=== PATIENT | female | born 1950 | race Caucasian/White ===

== ENCOUNTER 2016-11-17 18:57 | Inpatient (IN) | payer OTHER ==
[~2016-11-17] VITALS: Ht 160 cm; Wt 81.6 kg
[~2016-11-17 18:57] MED LIST: BUTA1CAP45 PO; ESOM20CA33 PO; LORA2TAB95 PO; LOSA50TA3 PO; METO1TAB PO; PRED20TA PO; PROC10TA PO; VENL75CA PO
[2016-11-17 19:00] VITALS: BP 146/109; PULSE 87; RESP 16; TEMP 99.2; O2SAT 93
[2016-11-17] MEDS ORDERED: ASPIRIN 81 MG TAB.CHEW PO ONE (19:15)
[2016-11-17] MEDS ORDERED: NITROGLYCERIN 0.4 MG TAB.SUBL SL ONE (19:15)
--- NOTE | 2016-11-17 19:40 | NUR ---
# 20 gauge angiocath placed to right hand. Use of asceptic technique. Opsite placed over site. Blood return noted. Blood for lab drawn from site. Flushed with 10 cc of normal saline. No evidence of infiltration noted. Patient tolerated well.
--- NOTE | 2016-11-17 19:40 | NUR ---
Dr Morel at bedside examining patient
--- NOTE | 2016-11-17 19:40 | NUR ---
Pt brought by self ,A&Ox4, pt c/o burning chest pain since this am, also HTN, skin pink and warm, cap refill <3, VSS, pt denies N/V/D, no bleeding noted,respirations even and unlabored.
[2016-11-17 20:06] LABS: BASOPHILS # (AUTO) 0.1 K/uL (0.0-0.2); BASOPHILS % (AUTO) 0.6 % (0.0-2.0); EOSINOPHILS % (AUTO) 0.5 % (0.0-4.0); HEMATOCRIT 42.4 % (36-48); HEMOGLOBIN 14.7 g/dL (12.0-16.0); LYMPHOCYTES # (AUTO) 2.9 K/uL (1.0-5.5); LYMPHOCYTES % (AUTO) 34.3 % (20.5-51.5); MEAN CORPUSCULAR HEMOGLOBIN 31 pg (27-31); MEAN CORPUSCULAR HGB CONC 35 % (32-36); MEAN CORPUSCULAR VOLUME 90 fL (79.0-98.0); MONOCYTES # (AUTO) 0.7 K/uL (0.0-1.0); MONOCYTES % (AUTO) 8.3 % (1.7-9.3); NEUTROPHILS # (AUTO) 4.7 K/uL (1.8-7.7); NEUTROPHILS % (AUTO) 56.3 % (40.0-70.0); PLATELET COUNT (AUTO) 253 K/uL (130-430); RED BLOOD CELL COUNT(AUTO) 4.71 MIL/uL (4.2-6.2); RED CELL DISTRIBUTION WIDTH 11.8 % (9.0-15.0); WHITE BLOOD COUNT (AUTO) 8.4 K/uL (4.8-10.8)
[2016-11-17 20:07] LABS: CALCIUM 8.7 mg/dL (8.4-11.0); CREATININE 0.69 mg/dL (0.55-1.30); POTASSIUM 3.1 mmol/L (3.5-5.1)
[2016-11-17 20:09] LABS: INR 0.9 (0.8-1.2); PROTHROMBIN TIME 10.3 SECS (9.5-12.5)
[2016-11-17] MEDS ORDERED: POTASSIUM CHLORIDE 20 MEQ TAB.PRT.SR PO ONE (20:30)
[2016-11-17] MEDS ORDERED: ONDANSETRON HCL 4 MG/2 ML VIAL IVP ONE (20:45)
[2016-11-17] MEDS ORDERED: MORPHINE 4 MG/ML INJ. SYRINGE IVP ONE (20:45)
[2016-11-17] MEDS ORDERED: FENT-71 TD (21:00)
[2016-11-17] MEDS ORDERED: ACETAMINOPHEN 325 MG TABLET PO PRN (21:15)
[2016-11-17] MEDS ORDERED: LORazepam 2 MG/ML VIAL (FOR ER USE) IVP ONE (21:15)
--- NOTE | 2016-11-17 21:38 | NUR ---
ADMISSION: The patient, NAYA HUERTA, 66 y/o, F admitted by NACHO MUNOZ MD, was given written information regarding hospital policies, unit procedures and contact persons. Valuables were checked and signed.
[2016-11-17] MEDS ORDERED: KCL 20 mEq in NS 1000 mL 1,000 ML IV SCH (21:43)
[2016-11-17 21:45] VITALS: BP 159/89; PULSE 79; RESP 20; TEMP 97.5; O2SAT 95
[2016-11-17] MEDS ORDERED: NITROGLYCERIN 0.4 MG TAB.SUBL SL PRN (21:45)
[2016-11-17] MEDS ORDERED: MORPHINE 2 MG/ML INJ. SYRINGE IVP PRN (21:45)
--- NOTE | 2016-11-17 21:53 | NUR ---
Consult Called Reason for consultation: Chest Pain Was consult called: yes Consulting physician: Sharath Schneider MD [employer]iding [employer] Specialty: Cardiology Ordered by: Luz Shepard MD
--- NOTE | 2016-11-17 22:00 | NUR ---
Initial note A/O x 3, no SOB, no chest pain, denied pain at this time. Skin warm to touch, IV at R hand, patent and free of infection or infiltration. Anxious and mild depressed. Clear lung sounds, active bowel sounds. No edema noted. +2 radial and pedal pulses. Unable to keep both knees flat, braces on knees, pillows placed under knees. Had urination x 2, bedpan provided, pericare done, patient tolerated well. Call light within reach, education provided, will continue to monitor patient.
--- NOTE | 2016-11-17 23:20 | NUR ---
Dr. Shepard called back and gave orders Ativan 2 mg IVP x 1 now Catapres 0.1 mg PO Q6H PRH for SBP > 160 mmHg DC Morphine IVP
[2016-11-17] MEDS ORDERED: cloNIDine HCL 0.1 MG TABLET PO PRN (23:30)
[2016-11-17] MEDS ORDERED: LORazepam 2 MG/ML VIAL IVP ONE (23:30)
[2016-11-17] MEDS: FIORCET PO PRN (23:45)
[2016-11-18] VITALS: BP 151/71; PULSE 84; RESP 17; TEMP 97.6; O2SAT 96
[2016-11-18] MEDS ORDERED: LORazepam 1 MG TABLET PO SCH
[2016-11-18] MEDS ORDERED: LORazepam 1 MG TABLET PO PRN ×2
--- NOTE | 2016-11-18 00:20 | NUR ---
Rounds A/O x 3, no SOB, no chest pain, pain subsided after Fioricet given. Ativan given earlier per patient requested, patient is calm at this time. Skin warm to touch, IV at R hand, patent and free of infection or infiltration. Mild depressed. Unable to keep both knees flat, braces on knees, pillows placed under knees. Call light within reach, education provided, will continue to monitor patient.
[2016-11-18] MEDS ORDERED: SUMAtriptan SUCCINATE 50 MG TABLET PO PRN (00:45)
[2016-11-18] MEDS: ONDANSETRON HCL 4 MG/2 ML VIAL IVP PRN ×2 (01:10→05:06)
--- NOTE | 2016-11-18 02:05 | NUR ---
Rounds Resting in bed, no SOB, no chest pain, no grimacing. IV at R hand, patent, free of infection or infiltration. Unable to keep both knees flat, braces on knees, pillows placed under knees. Call light within reach, will continue to monitor patient.
[2016-11-18 04:00] VITALS: BP 156/76; PULSE 78; RESP 18; TEMP 96.3; O2SAT 97
--- NOTE | 2016-11-18 04:10 | NUR ---
Rounds Resting in bed, no SOB, no chest pain, no grimacing. C/o mild nauseated, and patient is aware that next dose of Zofran is due about 0515. IV at R hand, patent, free of infection or infiltration. Unable to keep both knees flat, braces on knees, pillows placed under knees. SCD in place. Call light within reach, will continue to monitor patient.
[2016-11-18 04:35] LABS: BASOPHILS # (AUTO) 0.1 K/uL (0.0-0.2); BASOPHILS % (AUTO) 0.6 % (0.0-2.0); CALCIUM 8.5 mg/dL (8.4-11.0); EOSINOPHILS % (AUTO) 0.3 % (0.0-4.0); HEMATOCRIT 42.4 % (36-48); HEMOGLOBIN 14.7 g/dL (12.0-16.0); LYMPHOCYTES # (AUTO) 2.6 K/uL (1.0-5.5); MEAN CORPUSCULAR HEMOGLOBIN 31 pg (27-31); MEAN CORPUSCULAR HGB CONC 35 % (32-36); MEAN CORPUSCULAR VOLUME 90 fL (79.0-98.0); MONOCYTES # (AUTO) 0.9 K/uL (0.0-1.0); MONOCYTES % (AUTO) 9.1 % (1.7-9.3); NEUTROPHILS # (AUTO) 6.2 K/uL (1.8-7.7); PLATELET COUNT (AUTO) 241 K/uL (130-430); POTASSIUM 3.7 mmol/L (3.5-5.1); RED CELL DISTRIBUTION WIDTH 11.5 % (9.0-15.0); WHITE BLOOD COUNT (AUTO) 9.8 K/uL (4.8-10.8)
[2016-11-18 04:36] LABS: CREATININE 0.65 mg/dL (0.55-1.30); THYROID STIMULATING HORMONE 3.17 uIu/mL (0.34-4.82)
--- NOTE | 2016-11-18 06:00 | NUR ---
Closing note Sleeping in bed, no SOB, no chest pain, no grimacing. IV at R hand. Unable to keep both knees flat, braces on knees, pillows placed under knees. SCD in place. Call light within reach, will give report to incoming nurse.
--- NOTE | 2016-11-18 07:20 | NUR ---
initial rounds: pt on bed sleeping. stable. i.v. access patent. call light within reach. report given at bedside.
--- NOTE | 2016-11-18 08:47 | NUR ---
Nutrition Update Noel Scale 15 noted. Pt admitted for chest pain, r/o ID. Diet: 2 gm Na BMI: 31.9 kg/m2 RD to follow per nutrition care standards.
[2016-11-18] MEDS ORDERED: LOSARTAN POTASSIUM 50 MG TABLET (COZAAR) PO SCH (09:00)
[2016-11-18] MEDS ORDERED: PREDNISONE 20 MG TABLET PO SCH (09:00)
[2016-11-18] MEDS ORDERED: ASPIRIN 81 MG TABLET(ECOTRIN) PO SCH (09:00)
[2016-11-18] MEDS ORDERED: PANTOPRAZOLE SODIUM 40 MG TAB PO SCH (09:00)
--- NOTE | 2016-11-18 09:00 | NUR ---
Chest Pain: Pt complained of chest pain. 10/10 nitroglycerine given x2 5min interval.
--- NOTE | 2016-11-18 09:27 | NUR ---
Jagjit nelson: Seen by Dr. Schneider.
--- NOTE | 2016-11-18 10:00 | NUR ---
IV RE-INSERTION: I.V. pulled by accident while pt transferred to the commode. Restarted on R hand. Successful after first attempts. Resumed current of NS +20meq KCL and regulated @ per hour. Will observe for any signs of infiltration.
--- NOTE | 2016-11-18 10:24 | NUR ---
Jagjit rounds: seen by Dr. Shepard.
--- NOTE | 2016-11-18 11:19 | NUR ---
CONSULT PSYCH ANXIETY DR SIN [phone] S/W [facility] OFFICE @ [id number]
[2016-11-18] MEDS: FIORCET PO PRN (11:20)
[2016-11-18 12:00] VITALS: BP 163/78; PULSE 98; RESP 20; TEMP 97.3; O2SAT 94
--- NOTE | 2016-11-18 13:00 | NUR ---
I.V. pulled: patient went to use the commode and pulled the i.v. access by accident. Refused to re-start and verbalized she wants to go home.
--- NOTE | 2016-11-18 13:30 | NUR ---
rounds: pt denies pain. no distress noted.
--- NOTE | 2016-11-18 14:30 | NUR ---
conversation with Dr. Shepard: paged Dr. Shepard that pt want to go home. She had a phone conversation, explained the need to stay in the hospital for further study but pt insist she wants to go home.
--- NOTE | 2016-11-18 14:35 | NUR ---
Education: Pt given information against medical advice but verbalized she know's what she's doing and know what to do.
[2016-11-18 15:31] VITALS: BP 115/58; PULSE 98; RESP 19; TEMP 97.9; O2SAT 95
[2016-11-18 15:33] VITALS: BP 153/74; PULSE 88; RESP 16; TEMP 98.8; O2SAT 92
--- NOTE | 2016-11-18 15:42 | NUR ---
AMA: Patient does not wish to proceed with medical care recommended by Dr. Luz Shepard. Patient given information related to possible complications, up to and including , which could occur as a result of leaving hospital at this time. Patient verbalizes understanding of risks involved leaving against medical advice. Patient has signed AMA form.
--- NOTE | 2016-11-18 15:44 | NUR ---
Patient left Dr. Drea COREY informed.
== END 2016-11-18 15:45 | disposition left against medical advice (07) | DRG 206 ==
LOC: SED 18:57 → STU 21:22
PROVIDERS: ADMIT Internal Medicine; ATTEND Internal Medicine
DX: M94.0 Chondrocostal junction syndrome [Tietze] (principal); E87.1 Hypo-osmolality and hyponatremia; K21.9 Gastro-esophageal reflux disease without esophagitis; I16.0 Hypertensive urgency; I10 Essential (primary) hypertension; E87.6 Hypokalemia; F41.9 Anxiety disorder, unspecified; G89.4 Chronic pain syndrome; M19.90 Unspecified osteoarthritis, unspecified site; Z96.659 Presence of unspecified artificial knee joint; Z53.21 Procedure and treatment not carried out due to patient leaving prior to being seen by health care provider; M79.7 Fibromyalgia; F32.9 Major depressive disorder, single episode, unspecified; Z79.52 Long term (current) use of systemic steroids; Z90.49 Acquired absence of other specified parts of digestive tract; Z88.6 Allergy status to analgesic agent; Z87.891 Personal history of nicotine dependence; Z80.1 Family history of malignant neoplasm of trachea, bronchus and lung; Z82.5 Family history of asthma and other chronic lower respiratory diseases; Z79.899 Other long term (current) drug therapy
CPT/HCPCS: 36415; 71010; 80048; 83735-TC; 83880; 84443-TC; 84484; 85025; 85610-TC; 85730-TC; 93005; 93306; 96374; 99285; J2060; J2405; J3480; J7512